=== PATIENT | male | born 1945 | race Caucasian/White ===

== ENCOUNTER 2017-09-23 01:31 | Emergency (ER) | payer MEDICARE, OTHER ==
[2017-09-23] MEDS ORDERED: MORPHINE 10 MG/ML SYRINGE ONE (01:57)
[2017-09-23] MEDS ORDERED: Ondansetron HCl/PF 4 MG/2 ML Vial ONE (01:58)
[2017-09-23] MEDS ORDERED: Ketorolac Tromethamine 30 MG/ML VIAL ONE (01:58)
[2017-09-23 02:50] LABS: INR-International Normal Ratio 1.2; PTT 32.3 SEC (22.9-36.1); Prothrombin Time 15.2 SEC (12.0-14.7)
[2017-09-23 03:01] LABS: ALT (SGPT) 20 U/L (8-55); AST (SGOT) 21 U/L (5-34); Albumin 3.2 g/dL (3.4-4.8); Alkaline Phosphatase 52 U/L (40-150); Anion Gap 10 mmol/L (10-20); BUN (Urea Nitrogen) 14 mg/dL (8.4-25.7); Bilirubin, Total 0.3 mg/dL (0.2-1.2); CKMB 2.3 ng/mL (0-6.6); Calc. Creatinine Clearance 0 mL/min (70-130); Calcium 8.2 mg/dL (7.8-10.44); Carbon Dioxide 27 mmol/L (23-31); Chloride 106 mmol/L (98-107); Estimated GFR-MDRD Greater than 90; Glucose 143 mg/dL (83-110); Lipase 21 U/L (8-78); Potassium 4.2 mmol/L (3.5-5.1); Sodium 139 mmol/L (136-145); Troponin I Less than 0.010 ng/mL (< 0.028)
[2017-09-23 03:06] LABS: Globulin 2.3 g/dL (2.4-3.5); Protein, Total 5.5 g/dL (5.8-8.1)
[2017-09-23 03:14] LABS: Hemoglobin 5.6 g/dL (14.0-18.0); Red Blood Cell (RBC) Count 2.05 mill/uL (4.70-6.10); White Blood Cell (WBC) Count 2.9 thou/uL (4.8-10.8)
[2017-09-23 03:15] LABS: #Monocytes 0.4 thou/uL (0.11-0.59); #Neutrophils 1.5 thou/uL (1.40-6.50); %Basophils 2.3 % (0.0-1.0); %Eosinophils 3.5 % (0.0-10.0); %Lymphocytes 27.9 % (21.0-51.0); %Monocytes 13.4 % (0.0-10.0); %Neutrophils 52.9 % (42.0-75.0); Manual Diff?? YES; Mean Corpuscular HGB CONC 28.9 g/dL (32.0-36.0); Mean Corpuscular Hemoglobin 27.2 pg (27.0-31.0); Mean Corpuscular Volume 94.2 fL (80.0-94.0); Mean Platelet Volume 7.8 fL (7.4-10.4); Platelet Count 178 thou/uL (130-400); RBC Distribution Width 16.9 % (11.5-14.5)
[2017-09-23 03:16] LABS: #Basophils 0.1 thou/uL (0.0-0.2); #Eosinphils 0.1 thou/uL (0.0-0.7); Anisocytosis SLIGHT = 6-15 cells (100X) (0-5/hpf); Band 1 % (5-11); Eosinophils 4 % (0-10); Hypochromia MARKED = >30 cells (100X) (0-5/hpf); Lymphocytes 38 % (21-51); MDiff Complete? YES; Metamyelocyte 1 % (0-0); Monocytes 5 % (0-10); Neutrophil 51 % (42-75); PLT Morphology Comment Appears Adequate; Poikilocytosis SLIGHT = 6-15 cells (100X) (0-5/hpf)
[2017-09-23 03:17] LABS: RBC Morphology Abnormal
[2017-09-23] MEDS ORDERED: Sodium Chloride 0.9% 1,000 ML BAG ONE (07:30)
--- NOTE | 2017-09-23 07:47 | RAD ---
SINGLE VIEW CHEST: Date: 09/23/17 COMPARISON: None. HISTORY: Nausea and vomiting. FINDINGS: Single view of the chest shows a normal sized cardiomediastinal silhouette. There is no evidence of c onsolidation, mass, or pleural effusion. The bones are unremarkable. IMPRESSION: No evidence of acute cardiopulmonary disease. POS: [facility]
--- NOTE | 2017-09-23 08:01 | CT ---
PRELIMINARY REPORT/[facility]/EMERGENCY AFTER HOURS PROCEDURE: EXAM: CT Abdomen and Pelvis With Intravenous Contrast EXAM DATE/TIME: Exam ordered 09/23/2017 3:07 AM CLINICAL HISTORY: 72 years old, male; Pain and signs and symptoms; Nausea and vomiting; Abdominal pain; Localized; Left lower quadrant (llq) TECHNIQUE: Axial computed tomography images of the abdomen and pelvis with intravenous contrast. All CT scans at this facility use one or more dose reduction techniques, viz.: automated exposure control; ma/kV adj ustment per patient size (including targeted exams where dose is matched to indication; i.e. head); o r iterative reconstruction technique. CONTRAST: 96 mL of isovue 370 administered intravenously. COMPARISON: No relevant prior studies available. FINDINGS: Lower thorax: No acute findings. ABDOMEN: Liver: Hepatic cirrhosis. Gallbladder and bile ducts: Unremarkable. No calcified stones. No ductal dilation. Pancreas: Unremarkable. No mass. No ductal dilation. Spleen: Unremarkable. No splenomegaly. Adrenals: Unremarkable. No mass. Kidneys and ureters: 2 mm stone in the distal left ureter without any resulting obstructive urolithia sis. Bilateral renal pelvic cysts, left greater than right. No obstructive nephrolithiasis in the ki dneys bilaterally. Stomach and bowel: Colonic diverticulosis. No diverticulitis. No obstruction. Appendix: Normal appendix. PELVIS: Bladder: Unremarkable. No mass. Reproductive: Unremarkable as visualized. ABDOMEN and PELVIS: Intraperitoneal space: Unremarkable. No free air. No significant fluid collection. Bones/joints: Avascular necrosis of the right femoral head without collapse. Left hip prosthesis. No acute fracture. No dislocation. Soft tissues: Unremarkable. Vasculature: Unremarkable. No abdominal aortic aneurysm. Lymph nodes: Mildly prominent portacaval lymph nodes, indeterminate. IMPRESSION: 1. Hepatic cirrhosis. 2. 2 mm stone in the distal left ureter without any resulting obstructive urolithiasis. 3. Mildly prominent portacaval lymph nodes, indeterminate. 4. 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 Thank you for allowing us to participate in the care of your patient. Dictated and Authenticated by: Alec Peacock MD 09/23/2017 4:02 AM Central Time ([place] & [place]) FINAL REPORT CT ABDOMEN AND PELVIS WITH IV CONTRAST: Date: 09/23/17 FINDINGS/IMPRESSION: I agree with the preliminary report given by Dr. Alec Peacock of [facility]. POS: OFF
[2017-09-23 09:27] LABS: Hemoglobin 6.9 g/dL (14.0-18.0); Mean Corpuscular HGB CONC 29.4 g/dL (32.0-36.0); Mean Corpuscular Hemoglobin 26.9 pg (27.0-31.0); Mean Corpuscular Volume 91.5 fl (80.0-94.0); Mean Platelet Volume 6.9 fL (7.4-10.4); Platelet Count 161 thou/uL (130-400); RBC Distribution Width 18.7 % (11.5-14.5); Red Blood Cell (RBC) Count 2.58 mill/uL (4.70-6.10); White Blood Cell (WBC) Count 2.9 thou/uL (4.8-10.8)
[2017-09-23 09:28] LABS: Manual Diff?? YES
[2017-09-23 09:34] LABS: Band 1 % (5-11); Eosinophils 2 % (0-10); Lymphocytes 24 % (21-51); MDiff Complete? YES; Monocytes 18 % (0-10)
[2017-09-23 09:35] LABS: Neutrophil 55 % (42-75)
[2017-09-23 09:36] LABS: Anisocytosis SLIGHT = 6-15 cells (100X) (0-5/hpf); PLT Morphology Comment Appears Adequate
[2017-09-23] MEDS ORDERED: Iopamidol 370 76% 100 ML VIAL ONE (10:06)
[2017-09-23 13:11] LABS: Reticulocyte Count 7.7 % (0.5-1.5)
== END 2017-09-23 10:50 | disposition short-term general hospital (02) ==
LOC: MADERS 01:31
DX: N13.2 Hydronephrosis with renal and ureteral calculous obstruction (principal); M87.9 Osteonecrosis, unspecified; J18.9 Pneumonia, unspecified organism; K74.60 Unspecified cirrhosis of liver; I10 Essential (primary) hypertension; Z79.84 Long term (current) use of oral hypoglycemic drugs; Z79.899 Other long term (current) drug therapy
CPT/HCPCS: 36415; 36430; 71045; 74177; 80053; 82150; 82553; 83690; 83880; 84484; 85025; 85046; 85610; 85730; 86850; 86900; 86901; 86922; 87040; 87086; 96361; 96374; 96375; J1885; J2270; J2405; J7050; P9016